=== PATIENT | female | born 1960 | race Caucasian/White ===

== ENCOUNTER 2017-03-22 09:43 | Day surgery (SDC) | payer OTHER ==
[~2017-03-22] VITALS: Ht 165.1 cm; Wt 90.3 kg
[~2017-03-22 09:43] MED LIST: NEURONTIN PO; SULF1TAB23 PO; [UNRECOGNIZED DRUG - CODE]
[2017-03-22 10:12] VITALS: Ht 165.1 cm; Wt 90.3 kg
[2017-03-22] MEDS ORDERED: GABA300C16 PO (10:34)
[2017-03-22] MEDS ORDERED: LORA2DIS2 IJ (10:34)
[2017-03-22] MEDS ORDERED: BECL8.7A INH (10:34)
[2017-03-22] MEDS ORDERED: LORA0.5T PO (10:34)
[2017-03-22] MEDS ORDERED: NAPR-260 PO (10:34)
[2017-03-22] MEDS ORDERED: HYDROXAZINE (10:34)
[2017-03-22] MEDS ORDERED: ALBU18HF INHALATION (10:34)
[2017-03-22] MEDS ORDERED: SIMV-39 PO (10:34)
[2017-03-22] MEDS ORDERED: MONTELUKAST (10:34)
[2017-03-22] MEDS ORDERED: CARI250T PO (10:34)
[2017-03-22] MEDS ORDERED: HYDR-906 PO (10:34)
[2017-03-22 10:46] VITALS: BP 101/51; PULSE 81; RESP 16
[2017-03-22] MEDS ORDERED: PROPOFOL 40 ML ONE (10:59)
--- NOTE | 2017-03-22 11:25 | OPPN ---
Date/Time of Note Date/Time of Note DATE: 03/22/17 TIME: 11:24 Operative Report Preoperative Diagnosis Screening Postoperative Diagnosis Diverticulosis of the colon Internal hemorrhoids Operation/Procedure Performed Colonoscopy Provider: MARIANELA GONZALES MD Anesthesia Type: MAC Estimated blood loss: none Transfusion Required: no Specimen: none Grafts/Implants: none Complications: no MARIANELA GONZALES MD Mar 22, 2017 11:25
[2017-03-22 11:40] VITALS: BP 92/52; PULSE 81; RESP 18
[2017-03-22] MEDS ORDERED: ONDANSETRON 4 MG INJ ONE (11:53)
--- NOTE | 2017-03-22 12:32 | GILP ---
DATE OF PROCEDURE: 03/22/2017 PROCEDURE PERFORMED: Colonoscopy. SURGEON: Destiny Mclaughlin MD PREOPERATIVE DIAGNOSIS: Screening colonoscopy. POSTOPERATIVE DIAGNOSES: 1. Colonoscopy all the way to the cecum. 2. Diverticulosis of the colon. 3. Internal hemorrhoids. 4. No colon neoplasm was identified. INDICATION: Ms. Deena Hanson is a 56-year-old female patient who was scheduled for screening colonoscopy. The procedure and possible complications were well explained to the patient. She understood and consented to the procedure. DESCRIPTION OF PROCEDURE: Under influence of anesthesia, the colonoscope was carefully introduced in the rectum. Under direct vision, it was advanced all the way to the cecum. Findings, the patient had diverticulosis of the colon. She also had internal hemorrhoids. No colon neoplasm was identified. She tolerated the procedure very well, and there was no complication from the procedure. At the end of procedure, she was awake with stable vital signs and she was discharged home in care of her family. IMPRESSION: 1. Colonoscopy all the way to the cecum. 2. Diverticulosis of the colon. 3. Internal hemorrhoids. 4. No colon neoplasm was identified. PLAN: 1. Screening colonoscopy in 10 years. 2. Patient was advised high-fiber diet. Dictated By: MD HORACIO Person/ce/tory /Document#: [id number]
== END 2017-03-22 14:41 | disposition home or self-care (01) ==
LOC: GIL 09:43
PROVIDERS: ATTEND Internal Medicine Gastroenterology
DX: Z12.11 Encounter for screening for malignant neoplasm of colon (principal); K57.30 Diverticulosis of large intestine without perforation or abscess without bleeding; K64.8 Other hemorrhoids
CPT/HCPCS: 45378; J2405; Z7610

== ENCOUNTER 2017-07-20 07:00 | Day surgery (SDC) | END 2017-07-20 12:25 | disposition home or self-care (01) ==

== ENCOUNTER 2018-02-22 05:54 | Day surgery (SDC) | END 2018-02-22 13:55 | disposition home or self-care (01) ==

== ENCOUNTER 2018-07-12 05:33 | Inpatient (IN) | END 2018-07-14 16:05 | disposition home health service (06) | DRG 470 ==

== ENCOUNTER 2018-09-13 05:54 | Day surgery (SDC) | payer OTHER ==
[2018-09-12 11:06] VITALS: Ht 167.6 cm; Wt 104.0 kg
--- NOTE | 2018-09-12 20:48 | PREOPHP ---
DATE OF ADMISSION: 09/13/2018 HISTORY OF PRESENT ILLNESS: A 58-year-old patient who is going to be admitted through outpatient [facility] for diagnostic arthroscopy of right knee, partial medial and lateral meniscectomy, possible repa ir, total synovectomy, possible ACL repair, and application of Goddard dressing. This patient has been experiencing right knee pain for quite a while. Conservative treatment resulte d in limited benefit to the patient, and the patient has requested surgical intervention. PAST MEDICAL HISTORY: Asthma. SOCIAL HISTORY: Nonsmoker and nondrinker. FAMILY HISTORY: Positive for COPD, asthma, high blood pressure, breast cancer, and colon cancer. Al cohol and drug abuse. PAST SURGICAL HISTORY: , bunion surgery, left knee operative arthroscopy, and left total kn ee replacement. MEDICATIONS: Has been: 1. Diclofenac. 2. Vitamin B6. 3. B12. 4. Folic acid. 5. D3. 6. For postop, Bactrim-DS is given. 7. Other medications of the patient has been: Oxybutynin. 8. Simvastatin. 9. Proventil. 10. Gabapentin. 11. [place] . 12. Sumo. REVIEW OF SYSTEMS: Limited to present illness. PHYSICAL EXAMINATION: VITAL SIGNS: Height of 5 feet 6 inches, weighing 200 pounds. SKIN: Within normal limits. ENT: PERRLA. HEAD AND NECK: Normocephalic. Trachea midline. Bilateral symmetrical carotid pulses. No mass, no bruit, and no lymphadenopathy. CARDIOVASCULAR: Normal sinus rhythm. S1 and S2 normal. No murmur, no JVD, and no peripheral edema. LUNGS: Clear. ABDOMEN: Soft, scaphoid. No organomegaly. No mass. Bowel sounds present. GENITOURINARY AND RECTAL: Not done. Not pertinent to this admission. MUSCULOSKELETAL: Head and neck unremarkable. Upper extremities normal with the scope from previous surgery, shoulder. Spine clear. Both lower extremities symmetrical. No muscle atrophy. A well-hea led scar form previous surgery for total knee replacement. RIGHT KNEE: Motion is 0 to 20 degrees. There is tenderness over the medial and lateral tibiofemoral joint line. Synovitis present and effusion present. Negative anterior drawer and negative Abbe. DIAGNOSTIC DATA: MRI of the knee has indicated torn meniscus and a moderately grade partial ACL tear . There is moderate DJD of the knee. DIAGNOSES: 1. Right knee internal derangement with torn medial possible lateral meniscus, chondral loss. 2. Partial anterior cruciate ligament tear. 3. Synovitis. TREATMENT PLAN: Alternatives, risks, and benefits discussed. The patient understands possible compl ications from surgery such as infection, bleeding, nerve damage, vascular damage, possibility of deep venous thrombosis, pulmonary embolism, hypersensitivity from medication, and even . [place] resu lt may not be obtained depending on actual findings and known or unknown factor or factors. We are n ot going to do ACL reconstruction. The patient understands that if there is a need for ACL repair, i t will be done. Formal H and P is supposed to be done by PCP. Dictated By: JAY CARTER/MERVIN Conf#: [id number] DID#: [id number] CC: MARIANELA GONZALES MD; ALONZO RIZZO MD; MARCOS LANIER MD; JAY ARGUELLES MD;*End*
[2018-09-13] VITALS (15 sets, daily range): BP systolic 93–123; BP diastolic 52–78; PULSE 64–90; RESP 13–28
[~2018-09-13] VITALS: Ht 167.6 cm; Wt 104.0 kg
[~2018-09-13 05:54] MED LIST changes: +ALBU18HF INHALATION; +BECL10.62 IH; +CARI350T29 PO; +ERGO2000 PO; +FOLI-49 PO; +GABA-526 PO; +LORA10TA3 PO; +MONT10TA24 PO; -NEURONTIN PO; +OXYB10TA6 PO; +PYRI50TA15 PO; +SIMV20TA2 PO; -SULF1TAB23 PO; +TRAM50TA PO; -[UNRECOGNIZED DRUG - CODE]
[2018-09-13] MEDS ORDERED: CEFAZOLIN 2 GM/50 ML (PMX) 50 ML IVPB SCH (06:00)
[2018-09-13] MEDS ORDERED: DICL75TA2 PO (06:59)
[2018-09-13] MEDS ORDERED: CYAN500T46 PO (07:00)
[2018-09-13] MEDS ORDERED: morphine SULFATE/PF (10 MG/10 ML) INJ ONE (07:01)
[2018-09-13] MEDS ORDERED: SODIUM CL BACTERIOSTATIC 30 ML INJ ONE (07:01)
--- NOTE | 2018-09-13 07:16 | PREAC ---
Date/Time of Note Date/Time of Note DATE: 09/13/18 TIME: 07:13 Anesthesia Eval and Record Evaluation Time Pre-Procedure Interview DATE: 09/13/18 TIME: 07:13 Age 58 Sex female NPO: 8 hrs Preoperative diagnosis ACL tear right Planned procedure R knee arthroscopy ACL reconstruction Past Medical History Past Medical History: Includes Cardio: Dyslipidemia Pulm: Asthma Musculoskeletal: Osteoarthritis, Other (autoimmune disease ?, ) GI: Obesity Surgery & Anesthesia Issues No known issue Meds Anticoagulation: No Beta Jannet within 24 hr: No Reason Beta Jannet not given: Pt. not on B-Jannet Reported Medications Cyanocobalamin* (Vitamin B12*) 500 Mcg Tab, 500 MCG PO DAILY, TAB 09/13/18 Diclofenac Sodium* (Diclofenac Sodium*) 75 Mg Tablet.dr, 75 MG PO BID, #60 TAB 09/13/18 Carisoprodol* (Carisoprodol*) 350 Mg Tablet, 350 MG PO Q8 PRN for MUSCLE SPASMS, TAB 07/12/18 Pyridoxine Hcl (Vitamin B6) 50 Mg Tab, 100 MG PO DAILY, TAB 07/12/18 Folic Acid* (Folic Acid*) 1 Mg Tablet, 1 MG PO DAILY, TAB 07/12/18 Albuterol Sulfate* (Ventolin HFA*) 18 Gm Hfa.aer.ad, 2 PUFF INHALATION Q4H, #1 INHALER 07/12/18 Tramadol Hcl* (Ultram*) 50 Mg Tablet, 50 MG PO Q6H PRN for PAIN, TAB 07/12/18 Ergocalciferol (Vitamin D2) (VITAMIN D2) 2,000 Unit Tablet, 2000 UNIT PO DAILY, TAB 07/12/18 Gabapentin* (Gabapentin*) 600 Mg Tablet, 600 MG PO TID, #90 TAB 07/12/18 Beclomethasone Dipropionate (Qvar Redihaler (80 MCG)) 10.6 Gm Hfa.aeroba, 10.6 GM IH BID, INH 07/12/18 Loratadine* (Loratadine*) 10 Mg Tablet, 10 MG PO DAILY, #30 TAB 07/12/18 Montelukast Sodium* (Montelukast Sodium*) 10 Mg Tablet, 10 MG PO QHS, #30 TAB 07/12/18 Oxybutynin Chloride* (Ditropan* XL) 10 Mg Tab.er.24, 10 MG PO DAILY, TAB.SA 07/12/18 Simvastatin (Simvastatin) 20 Mg Tablet, 20 MG PO QHS, #30 TAB 07/12/18 Current Medications Cefazolin Sodium/ Dextrose 50 ml @ 100 mls/hr PREOP IVPB ; Start 09/13/18 at 06:00; Stop 09/13/18 at 17:00 Meds reviewed: Yes Allergies Coded Allergies: mushroom (Verified Allergy, Unknown, SWELLING UNABLE TO BREATH, 09/13/18) codeine (Verified Adverse Reaction, Unknown, VOMIT, 09/13/18) cyclobenzaprine (Verified Adverse Reaction, Unknown, NAUSE AND VOMITING, 09/13/18) erythromycin base (Verified Adverse Reaction, Unknown, VOMIT, 09/13/18) Allergies Reviewed: Yes Labs/Studies Labs Reviewed: Reviewed by anesthesiologist test: N/A Studies: ECG (sr), CXR (nl) Pre-procedure Exam Last vitals Vital Signs Date Temp Pulse Resp B/P (MAP) Pulse Ox O2 O2 Flow FiO2 Time Delivery Rate 09/13/18 97.8 69 16 109/63 96 Room Air 07:03 (78) Airway: Adequate mouth opening Mallampati: Mallampati II Teeth: Normal Lung: Normal Heart: Normal ASA Physical Status ASA physical status: 2 Emergency: None Planned Anesthetic General/MAC: ETT Nerve block: Femoral (right) Planned Pain Management Single shot nerve block, Parenteral pain med Pre-operative Attestations Prior to commencing anesthesia and surgery, the patient was re-evaluated, there was verification of: *The patient's identity *The results of appropriate recent lab work and preoperative vital signs *The above evaluation not changing prior to induction *Anesthetic plan, risk benefits, alternative and complications discussed with patient/family; questions answered; patient/family understands, accepts and wishes to proceed. SRINIVAS DOE MD Sep 13, 2018 07:16
[2018-09-13] MEDS ORDERED: PROPOFOL 20 ML ONE (07:26)
[2018-09-13] MEDS ORDERED: ONDANSETRON 4 MG INJ ONE (07:26)
[2018-09-13] MEDS ORDERED: ROPIVACAINE 0.5 % 30 ML VIAL ONE (07:26)
[2018-09-13] MEDS ORDERED: METOCLOPRAMIDE 10 MG INJ ONE (07:26)
[2018-09-13] MEDS ORDERED: MIDAZOLAM 1 MG/ML 2 ML INJ ONE (07:26)
[2018-09-13] MEDS ORDERED: DEXAMETHASONE 4 MG/ML 5 ML INJ ONE (07:26)
[2018-09-13] MEDS ORDERED: OXYCODONE/ACETAMINOPHEN (5/325) TAB PO PRN ×2 (07:30)
[2018-09-13] MEDS ORDERED: ALBUTEROL 0.083% (NEB) 2.5 MG/3 ML AMP HHN PRN (07:30)
[2018-09-13] MEDS ORDERED: hydrALAzine 20 MG INJ IV PRN (07:30)
[2018-09-13] MEDS ORDERED: MEPERIDINE 25 MG INJ IV PRN (07:30)
[2018-09-13] MEDS ORDERED: ONDANSETRON 4 MG INJ IV PRN (07:30)
[2018-09-13] MEDS ORDERED: DIPHENHYDRAMINE 50 MG INJ IV PRN (07:30)
[2018-09-13] MEDS ORDERED: HYDROmorphONE 1 MG/5 ML IV SYRINGE IV PRN ×3 (07:30)
[2018-09-13] MEDS ORDERED: KETOROLAC 30 MG INJ IV PRN (07:30)
[2018-09-13] MEDS ORDERED: LABETALOL HCL 20MG INJ IV PRN (07:30)
[2018-09-13] MEDS ORDERED: CEFAZOLIN 1 GM INJ ONE (07:54)
[2018-09-13] MEDS ORDERED: KETOROLAC 30 MG INJ ONE (07:56)
[2018-09-13] MEDS ORDERED: FAMOTIDINE 20 MG INJ ONE (08:02)
[2018-09-13] MEDS ORDERED: HYDROmorphONE 2 MG/ML SYG ONE (08:06)
[2018-09-13] MEDS ORDERED: GLYCOPYRROLATE 0.4 MG INJ ONE (08:42)
[2018-09-13] MEDS ORDERED: NEOSTIGMINE 10 MG INJ ONE (08:42)
--- NOTE | 2018-09-13 09:06 | SIPON ---
Date/Time of Note Date/Time of Note DATE: 09/13/18 TIME: 09:01 Operative Report Preoperative Diagnosis Torn medial and lateral meniscus, plus synovitis, and possible ACL tear Postoperative Diagnosis The same ( partial ACL tear less than %20) Operation/Procedure Performed Diagnostic scope, partial medial and lateral meniscectomy, Synovectomy and Goddard Dressing Surgeon Jay Weldon MD casting assistant Debi Anesthesia: general Estimated blood loss: minimal Transfusion Required none Specimen None Grafts/Implants none Complications none JAY WELDON MD Sep 13, 2018 09:06
--- NOTE | 2018-09-13 10:30 | OPR ---
DATE OF OPERATION: 09/13/2018 PREOPERATIVE DIAGNOSES: 1. Torn medial meniscus. 2. Torn lateral meniscus. 3. Synovitis. 4. Partial anterior cruciate ligament disruption. POSTOPERATIVE DIAGNOSES: 1. Torn medial meniscus. 2. Torn lateral meniscus. 3. Synovitis partial ligament disruption. OPERATION PERFORMED: Diagnostic arthroscopy, partial medial and lateral meniscectomy, total synovect eleonora, application of Goddard dressing. ANESTHESIA: General. ANESTHESIOLOGIST: Josefina Villegas MD BLEEDING: Minimal. COMPLICATIONS: None. OPERATIVE PROCEDURE: The patient was transferred to the operating room and placed on the operating t able in supine position. General anesthesia was induced. A couple grams of Ancef was given IV. Rig ht knee lower extremity was prepped and draped in the routine fashion. Landmarks were marked through 2 regular anterior portals, 1 medial and 1 lateral per patellar tendon. Operative arthroscopy was c ommenced. Examination of the suprapatellar pouch indicated chronic synovitis which was taken care of by coagulation by Arthrocare Bovie. Medial and lateral gutter was clear of loose body. There was g rade III generalized chondromalacia patellofemoral surface. Note, however, more on the patella than trochlea. There was synovitis in inferior pole of the patella, was synovitis in the medial and later al compartment. There was flap tear of the anterior horn of the medial meniscus. She was taken care of by Arthrocare Bovie to stable margin. There was no peripheral instability meniscus. Articular s urface indicated generalized grade III chondromalacia. There was a 20% partial disruption of the ACL . Otherwise, the bundle was nicely intact and it was probed. Abbe was negative. During the proc edure also, preoperatively, which was done. Going to lateral compartment, there was early grade III chondromalacial done . It shows nearly 2 compartments, there was a flap tear of the anterior ho rn of the lateral meniscus which was taken care of, to stable margins by Arthrocare Bovie by ablation . Synovitis was present which was again coagulated by Arthrocare Bovie, also inferior pole of patell a shows marked synovitis which was coagula mira by Arthrocare Bovie. Knee was evacuated from debris with copious amount of saline irrigation. Portal was closed with nidhi oin and Steri-Strips. Then 10 mg Duramorph mixed with 10 mL of injectable saline was injected into t he knee. Sterile Goddard dressing was applied. Procedure was terminated. General anesthesia was stop ped. Patient was taken to recovery room in stable condition. Dictated By: JAY CARTER/MERVIN Conf#: [id number] DID#: [id number]
--- NOTE | 2018-09-13 19:04 | PAC ---
Date/Time of Note Date/Time of Note DATE: 09/13/18 TIME: 19:03 Post-Anesthesia Notes Post-Anesthesia Note Last documented vital signs Vital Signs Date Temp Pulse Resp B/P (MAP) Pulse Ox O2 O2 Flow FiO2 Time Delivery Rate 09/13/18 97.6 64 16 114/58 98 10:10 (76) 09/13/18 Nasal 2.0 10:00 Cannula Activity: WNL Respiratory function: WNL Cardiovascular function: WNL Mental status: Baseline Pain reasonably controlled: Yes Hydration appropriate: Yes Nausea/Vomiting absent: No SRINIVAS DOE MD Sep 13, 2018 19:04
== END 2018-09-13 11:30 | disposition home or self-care (01) ==
LOC: SDS 05:54
PROVIDERS: ATTEND Internal Medicine Endocrinology, Diabetes & Metabolism
DX: M23.211 Derangement of anterior horn of medial meniscus due to old tear or injury, right knee (principal); M23.241 Derangement of anterior horn of lateral meniscus due to old tear or injury, right knee; M94.261 Chondromalacia, right knee; M65.861 Other synovitis and tenosynovitis, right lower leg; J44.9 Chronic obstructive pulmonary disease, unspecified
CPT/HCPCS: 29880; J0690; J1100; J1170; J1885; J2175; J2250; J2274; J2405; J2710; J2765; Z7512; Z7610; J2795